=== PATIENT | female | born 1975 | race Caucasian/White ===

== ENCOUNTER 2016-11-21 09:09 | Outpatient (CLI) | payer BC | END 2016-11-21 09:10 | disposition home or self-care (01) | LOC: DTY/OP 09:09 | PROVIDERS: ATTEND Surgery | DX: G47.30 Sleep apnea, unspecified (principal); I10 Essential (primary) hypertension | CPT/HCPCS: 97802 ==

== ENCOUNTER 2016-12-20 08:41 | Outpatient (CLI) | payer BC | END 2016-12-20 08:42 | disposition home or self-care (01) | LOC: DTY/OP 08:41 | PROVIDERS: ATTEND Surgery | DX: G47.30 Sleep apnea, unspecified (principal); I10 Essential (primary) hypertension | CPT/HCPCS: 97802 ==

== ENCOUNTER 2017-01-15 13:56 | Outpatient (CLI) | payer BC | END 2017-01-15 13:57 | disposition home or self-care (01) | LOC: DTY/OP 13:56 | PROVIDERS: ATTEND Surgery | DX: G47.30 Sleep apnea, unspecified (principal); I10 Essential (primary) hypertension | CPT/HCPCS: 97802 ==

== ENCOUNTER 2017-09-17 11:02 | Outpatient (CLI) | payer BC ==
[2017-09-17 13:24] LABS: BHCG - Serum Negative (NEGATIVE); Pregs Control Background? CLEAR/WHITE (CLR/WHITE); Pregs Control Bar Appear? YES (CONTROL BAR)
[2017-09-17 13:26] LABS: ALT (SGPT) 34 U/L (8-55); AST (SGOT) 28 U/L (5-34); Albumin 4.2 g/dL (3.5-5.0); Alkaline Phosphatase 85 U/L (40-150); Anion Gap 13 mmol/L (10-20); BUN (Urea Nitrogen) 18 mg/dL (7.0-18.7); Bilirubin, Direct 0.2 mg/dL (0.1-0.3); Bilirubin, Total 0.5 mg/dL (0.2-1.2); Calc. Creatinine Clearance 0 mL/min (70-130); Calcium 9.1 mg/dL (7.8-10.44); Carbon Dioxide 23 mmol/L (22-29); Chloride 105 mmol/L (98-107); Estimated GFR-MDRD 86; Globulin 2.9 g/dL (2.4-3.5); Glucose 85 mg/dL (70-105); Potassium 3.4 mmol/L (3.5-5.1); Protein, Total 7.1 g/dL (6.0-8.3); Sodium 138 mmol/L (136-145)
[2017-09-17 13:27] LABS: Hemoglobin A1c 5.2 % (4.0-6.0)
--- NOTE | 2017-09-17 14:18 | RAD ---
PA AND LATERAL OF THE CHEST: INDICATION: History of preop. COMPARISON: The exam is compared to a prior dated 10/08/04. FINDINGS: Lungs are clear. Cardiomediastinal silhouette is within normal limits. No acute osseous abnormality is evident. IMPRESSION: No acute cardiopulmonary abnormality. POS: [facility]
[2017-09-17 14:46] LABS: #Eosinphils 0.1 thou/uL (0.0-0.7); #Lymphocytes 2.5 thou/uL (1.20-3.40); #Monocytes 0.5 thou/uL (0.11-0.59); #Neutrophils 5.6 thou/uL (1.40-6.50); %Basophils 0.4 % (0.0-1.0); %Eosinophils 1.2 % (0.0-10.0); %Lymphocytes 29.1 % (21.0-51.0); %Monocytes 5.5 % (0.0-10.0); %Neutrophils 63.8 % (42.0-75.0); Hemoglobin 13.2 g/dL (12.0-16.0); Mean Corpuscular HGB CONC 34.4 g/dL (32.0-36.0); Mean Corpuscular Hemoglobin 30.8 pg (27.0-31.0); Mean Corpuscular Volume 89.6 fL (78.0-98.0); Platelet Count 232 thou/uL (130-400); RBC Distribution Width 14.9 % (11.5-14.5); Red Blood Cell (RBC) Count 4.29 mill/uL (4.20-5.40); White Blood Cell (WBC) Count 8.7 thou/uL (4.8-10.8)
--- NOTE | 2017-09-17 17:12 | EKG ---
Test Reason : Blood Pressure : / mmHG Vent. Rate : 072 BPM Atrial Rate : 072 BPM P-R Int : 126 ms QRS Dur : 090 ms QT Int : 420 ms P-R-T Axes : 074 -13 021 degrees QTc Int : 459 ms Normal sinus rhythm Normal ECG No previous ECGs available Confirmed by MAO MALDONADO, DR. Ferguson ([id number]) on 09/17/2017 5:12:40 PM Referred By: REGINA Confirmed By:DR. Phyllis CAVANAUGH MD
== END 2017-09-17 11:03 | disposition home or self-care (01) ==
LOC: LABBT 11:02
PROVIDERS: ATTEND Surgery
DX: Z01.818 Encounter for other preprocedural examination (principal); E66.01 Morbid (severe) obesity due to excess calories
CPT/HCPCS: 71046; 80053; 80076; 83036; 84703; 85025; 93005; 93010

== ENCOUNTER 2017-11-01 12:08 | Day surgery (SDC) | payer BC ==
[2017-11-01] MEDS ORDERED: Ondansetron HCl/PF 4 MG/2 ML Vial IVP PRN (12:21)
[2017-11-01] MEDS ORDERED: Sodium Chloride 0.9% 10 ML ONE (12:22)
[2017-11-01] MEDS ORDERED: Multivitamins, Adult 10 ML in Sodium Chloride 0.9% 1,000 ML IV SCH (12:30)
[2017-11-01] MEDS ORDERED: Sodium Chloride 0.9% 1,000 ML IV SCH (12:30)
[2017-11-01 12:52] LABS: Hemoglobin 13.6 g/dL (12.0-16.0); Mean Corpuscular HGB CONC 34.3 g/dL (32.0-36.0); Mean Corpuscular Hemoglobin 32.6 pg (27.0-31.0); Mean Platelet Volume 7.8 fL (7.4-10.4); Platelet Count 224 thou/uL (130-400); RBC Distribution Width 11.8 % (11.5-14.5); Red Blood Cell (RBC) Count 4.18 mill/uL (4.20-5.40); White Blood Cell (WBC) Count 6.6 thou/uL (4.8-10.8)
[2017-11-01 13:04] LABS: Anion Gap 13 mmol/L (10-20); BUN (Urea Nitrogen) 13 mg/dL (7.0-18.7); Calc. Creatinine Clearance 0 mL/min (70-130); Calcium 9.2 mg/dL (7.8-10.44); Carbon Dioxide 23 mmol/L (22-29); Chloride 108 mmol/L (98-107); Estimated GFR-MDRD 78; Glucose 81 mg/dL (70-105); Sodium 140 mmol/L (136-145)
[2017-11-01 13:56] VITALS: BP 133/92; TEMP 98.2
== END 2017-11-01 15:14 | disposition home or self-care (01) ==
LOC: ONC/OP 12:08
PROVIDERS: ATTEND Surgery
DX: E86.0 Dehydration (principal); Z88.5 Allergy status to narcotic agent; Z88.8 Allergy status to other drugs, medicaments and biological substances
CPT/HCPCS: 80048; 82728; 85027; 96365; 96366; 96367; A4216; J7050

== ENCOUNTER → 2018-04-12 | Day surgery (SDC) | payer BC ==
[~2018-04-12] MED LIST: Multivit, Adult Inj 10 ML VIAL ONE; Ondansetron PF 4 MG/2 ML Vial ONE; Thiamine HCl 200 MG/2 ML VIAL ONE
== END ==
LOC: SCSER/OP 12:30
PROVIDERS: ATTEND Surgery
DX: Z29.8 Encounter for other specified prophylactic measures (principal); Z88.5 Allergy status to narcotic agent; Z79.899 Other long term (current) drug therapy
CPT/HCPCS: J2405; J3411